=== PATIENT | female | born 1990 | race Caucasian/White ===

== ENCOUNTER 2017-12-10 07:20 | Day surgery (SDC) | payer OTHER ==
[~2017-12-10 07:20] MED LIST: KETO10TA2 PO; LEVSIN0.125 MG PO; LODINE XL500 MG PO; MIRALAX510 GM PO; MUCINEX DM TABL1 BOX PO; ORPH100T PO; PREVACID30 M1 PO; PROTONIX40 MG PO; TAMS0.4C PO; ULTRACET PO; ZANTAC150 MG PO; ZOFRAN4 MG PO; [UNRECOGNIZED DRUG - OTHER]
[2017-12-10] MEDS ORDERED: ULTRACET PO (14:14)
[2017-12-10] MEDS ORDERED: SURFAK240 M1 PO (14:15)
[2017-12-10] MEDS ORDERED: POLY119PG PO (14:15)
== END 2017-12-10 17:49 | disposition home or self-care (01) ==
LOC: CIR.AMB 07:20
DX: K80.10 Calculus of gallbladder with chronic cholecystitis without obstruction (principal)

== ENCOUNTER 2018-07-01 16:57 | Emergency (ER) | payer OTHER ==
[~2018-07-01] VITALS: Ht 167.6 cm; Wt 64.0 kg
[~2018-07-01 16:57] MED LIST changes: +POLY119PG PO; +SURFAK240 M1 PO
== END 2018-07-01 18:56 | disposition home or self-care (01) ==
LOC: ER 16:57
DX: S50.12XA Contusion of left forearm, initial encounter (principal); S60.222A Contusion of left hand, initial encounter; S60.212A Contusion of left wrist, initial encounter; W18.39XA Other fall on same level, initial encounter; Y93.89 Activity, other specified; Y92.098 Other place in other non-institutional residence as the place of occurrence of the external cause; Y99.8 Other external cause status

== ENCOUNTER 2019-06-20 10:59 | Emergency (ER) | payer OTHER ==
[~2019-06-20] VITALS: Ht 167.6 cm; Wt 70.8 kg
== END 2019-06-20 13:06 | disposition home or self-care (01) ==
LOC: ER 10:59
DX: N39.0 Urinary tract infection, site not specified (principal)